=== PATIENT | male | born 1980 | race African-American/Black ===

== ENCOUNTER 2016-12-05 15:13 | Emergency (ER) | payer OTHER, MEDICAID ==
[~2016-12-05] VITALS: Ht 177.8 cm; Wt 93.0 kg
[2016-12-05 15:15] VITALS: BP 134/82; PULSE 102; RESP 19; TEMP 98.1; O2SAT 99
[2016-12-05 16:28] VITALS: BP 137/78; PULSE 97; RESP 18; TEMP 98.3; O2SAT 98
== END 2016-12-05 16:28 | disposition home or self-care (01) ==
LOC: SED 15:13
DX: L03.114 Cellulitis of left upper limb (principal); S40.862D Insect bite (nonvenomous) of left upper arm, subsequent encounter; F31.9 Bipolar disorder, unspecified; Z88.8 Allergy status to other drugs, medicaments and biological substances; W57.XXXD Bitten or stung by nonvenomous insect and other nonvenomous arthropods, subsequent encounter; Y93.89 Activity, other specified; Y99.8 Other external cause status; Y92.89 Other specified places as the place of occurrence of the external cause
CPT/HCPCS: 99283

== ENCOUNTER 2016-12-14 19:57 | Emergency (ER) | payer OTHER, MEDICAID ==
[~2016-12-14] VITALS: Ht 177.8 cm; Wt 93.0 kg
[2016-12-14 20:30] VITALS: BP 145/102; PULSE 99; RESP 18; TEMP 98.5; O2SAT 99
--- NOTE | 2016-12-14 20:30 | NUR ---
PT. TO ER AAOx[facility] FOR RASH ON LFA, PER PT. HE WAS HERE AT [facility] ER SEEN BY DR. OSULLIVAN FOR CELLULITIS, PT. STATES THAT ANITBIOTICS DID NOT WORK FOR THE PAST WEEK AND NOW HE IS DEVELOPED RASHES AROUND THE AREA. WOUND PRESENT LFA WITH PURULENT DRAINAGE PRESENCE OF PUS, INFLAMMATION AND BLOODY DRAINAGE PRESENT
--- NOTE | 2016-12-14 20:30 | NUR ---
Patient to ER bed 7 for evaluation. Side rails up. Report given to ALPHONSO Messer.
[2016-12-14] MEDS ORDERED: CLIN-77 PO (20:36)
[2016-12-14] MEDS ORDERED: CEPH-568 PO (20:36)
--- NOTE | 2016-12-14 20:56 | NUR ---
DR. ROWE AT BEDSIDE EXAMINING THE PT.
[2016-12-14 21:10] VITALS: BP 141/98; PULSE 99; RESP 18; TEMP 98.5; O2SAT 99
--- NOTE | 2016-12-14 21:10 | NUR ---
Patient given written and verbal discharge instructions and verbalizes understanding. ER MD DR. ROWE discussed with patient the results and treatment provided. Patient in stable condition. ID arm band removed. Rx of BACTRIM given. Patient educated on pain management and to follow up with PMD. Pain Scale 0/10 Opportunity for questions provided and answered.
== END 2016-12-14 21:10 | disposition home or self-care (01) ==
LOC: SED 19:57
DX: L03.114 Cellulitis of left upper limb (principal); F31.9 Bipolar disorder, unspecified; Z88.8 Allergy status to other drugs, medicaments and biological substances
CPT/HCPCS: 87070-TC; 99283

== ENCOUNTER 2019-03-15 02:41 | Emergency (ER) | payer OTHER, MEDICAID ==
[~2019-03-15] VITALS: Ht 177.8 cm; Wt 104.3 kg
[~2019-03-15 02:41] MED LIST: CEPH-568 PO; CLIN300C11 PO
[2019-03-15 02:55] VITALS: BP_SYST 13; BP_SYST 131
[2019-03-15 03:10] VITALS: BP_SYST 131
== END 2019-03-15 03:10 | disposition home or self-care (01) ==
LOC: SED 02:41
DX: L97.819 Non-pressure chronic ulcer of other part of right lower leg with unspecified severity (principal); F31.9 Bipolar disorder, unspecified; Z79.899 Other long term (current) drug therapy; Z88.8 Allergy status to other drugs, medicaments and biological substances
CPT/HCPCS: 99283